=== PATIENT | female | born 1985 | race African-American/Black ===

== ENCOUNTER 2017-11-03 18:33 | Emergency (ER) | payer BC, OTHER ==
[~2017-11-03] VITALS: Ht 157.5 cm; Wt 87.1 kg
[~2017-11-03 18:33] MED LIST: IBUPROFEN 600600 M1 PO; NOHOMEMEDICATIONS; NORCO 5-325 TA1 EACH PO
[2017-11-03] MEDS ORDERED: IBUPROFEN 800800 M1 PO (18:58)
[2017-11-03] MEDS ORDERED: NORFLEX100 MG PO (18:58)
== END 2017-11-03 19:20 | disposition home or self-care (01) ==
LOC: ER 18:33
DX: S39.012A Strain of muscle, fascia and tendon of lower back, initial encounter (principal); M25.551 Pain in right hip; J45.909 Unspecified asthma, uncomplicated; X58.XXXA Exposure to other specified factors, initial encounter; Y93.89 Activity, other specified; Y92.89 Other specified places as the place of occurrence of the external cause; Y99.8 Other external cause status

== ENCOUNTER → 2017-11-27 | Outpatient (CLI) | payer BC, OTHER ==
[~2017-11-27] MED LIST changes: +IBUPROFEN 800800 M1 PO; +NORFLEX100 MG PO
== END ==
LOC: RAD 15:10
DX: M54.41 Lumbago with sciatica, right side (principal); M25.551 Pain in right hip

== ENCOUNTER → 2017-12-23 | Outpatient (CLI) | payer BC, OTHER | LOC: MRI 11:10 | DX: M47.26 Other spondylosis with radiculopathy, lumbar region (principal); R20.2 Paresthesia of skin ==